=== PATIENT | male | born 1980 | race Caucasian/White ===

== ENCOUNTER 2021-06-09 18:52 | Emergency (ER) | payer BC ==
[~2021-06-09] VITALS: Ht 185.4 cm; Wt 83.0 kg
[2021-06-09] MEDS ORDERED: GABA-534 PO (20:50)
[2021-06-09] MEDS ORDERED: VALA100031 PO (20:50)
[2021-06-09] MEDS ORDERED: MELO15TA13 PO (20:51)
[2021-06-09] MEDS ORDERED: valacyclovir 500mg tablet PO SCH (21:05)
[2021-06-09] MEDS ORDERED: valacyclovir 500mg tablet PO ONE (21:05)
[2021-06-09 21:40] VITALS: BP 130/90
== END 2021-06-09 21:42 | disposition home or self-care (01) ==
LOC: ER 18:54
DX: B02.9 Zoster without complications (principal)
CPT/HCPCS: 99283